=== PATIENT | male | born 1990 | race Caucasian/White ===

== ENCOUNTER 2023-08-15 20:19 | Emergency (ER) | payer OTHER, SELFPAY ==
--- NOTE | 2023-08-15 20:29 | ED_ITS ---
HPI - General Adult General Chief complaint: Wound/Laceration Stated complaint: Laceration on L thumb Related Data Allergies Allergy/AdvReac Type Severity Reaction Status Date / Time No Known Allergies Allergy Verified 08/15/23 20:32 [facility] Social History Social History Advance Directives: No Advance Directives Information Provided: No Do you have a plan to hurt others: No Plan Physical Exam ED Vital Signs: BMI result Body Mass Index 20.3 Course Course Course Narrative: This is a rapid medical exam performed by Jann Chi NP: Additional HPI, ROS, PE not included below will be deferred to primary provider. Patient is a 33-year-old right hand dominant male presenting to ED with laceration to left thumb. Cut at work with a bat knife around noon. Full ROM. 1cm lac just dista l to MCP, no active bleeding. Full ROM to left thumb in all directions, capillary refill <3 seconds, 2+ radial pulse. Unknown last Tdap. Plan: tdap Medications Administered Discontinued Medications Generic Name Dose Route Start Last Admin Trade Name Freq PRN Reason Stop Dose Admin Diphtheria/Tetanus/Acell Pertussis 0.5 ml 08/15/23 20:33 08/15/23 21:13 Diphth,Pertus(Acell),Tet Adult 0.5 Ml Syringe IM 08/15/23 20:34 0.5 ml .ONCE ONE Administration Discharge Plan Discharge Clinical Impression: Laceration Patient Disposition: Left W/O Completing Treatment Stand Alone Forms: Against Medical Advice Interventions: ED Discharge Assessment Last Done: 08/15/23 22:07 Discharge Date/Time: 08/15/23 22:16 Print Language: Upper Sorbian
[2023-08-15 20:30] VITALS: BP 126/78; PULSE 76; RESP 17; TEMP 36.1; O2SAT 98; BMI 20.3
[2023-08-15] MEDS: Diphth,Pertus(ACell),Tet Adult 0.5 ML SYRINGE IM (21:13)
[2023-08-15 22:07] VITALS: BP 126/78; PULSE 76; RESP 17; TEMP 36.1; O2SAT 98
--- NOTE | 2023-08-15 22:08 | PC.NURSE ---
Patient asked when provider is coming to see him, informed patient that provider should be in momentarily and apologized for the delay. This RN went to charge station to see where provider was and what was the delay. Upon return from charge station, patient's significant other was found yelling at registration colleagues, stating I have to go, I need to be at work by eleven and you're saying we can't leave. He has rights. Informed significant other that patient is free to go, but it would be against medical advice. Patient's guest yelling I have to go . Informed guest she is free to leave at anytime as she is not a patient. Guest stormed away. Patient came back to nurse's station saying he is leaving. Patient given AMA form to sign, patient signed. Observed to leave dept with a steady gait.
== END 2023-08-15 22:16 | disposition left against medical advice (07) ==
PROVIDERS: Emergency Provider Emergency Medicine
DX: S61.012A Laceration without foreign body of left thumb without damage to nail, initial encounter (principal); W27.8XXA Contact with other nonpowered hand tool, initial encounter; Y93.89 Activity, other specified; Y92.69 Other specified industrial and construction area as the place of occurrence of the external cause; Y99.0 Civilian activity done for income or pay; Z53.29 Procedure and treatment not carried out because of patient's decision for other reasons; Z23 Encounter for immunization
CPT/HCPCS: 90471; 90715; 99282; 99284